=== PATIENT | male | born 1950 | race Caucasian/White ===

== ENCOUNTER 2017-12-08 22:09 | Observation (INO) | payer OTHER ==
[~2017-12-08] VITALS: Ht 175.3 cm; Wt 101.3 kg
[~2017-12-08 22:09] MED LIST: ATENOLOL50 MG PO; LIPITOR20 MG PO; OMEPRAZOLE40 M1 PO; TAMSULOSIN HCL0.4 MG PO; TRIBENZOR 40-51 EAC5 PO; VENTOLIN HFA18 GM IH
[2017-12-08 22:35] LABS: HEMATOCRIT 40.5 % (38.0-50.0); HEMOGLOBIN 13.8 G/DL (12.5-16.6); MCH 30.7 PG (29.0-34.0); MCHC 34.1 G/DL (30.0-36.0); PLATELET COUNT 218 K/uL (156-360); RBC DIS.WIDTH-CV 12.2 % (11.8-14.6); RBC DIS.WIDTH-SD 39.7 % (39-53); WHITE BLOOD COUNT 8.4 K/uL (4.1-10.2)
[2017-12-08 22:51] LABS: CHLORIDE 104 mEq/L (99-109); POTASSIUM 3.9 mEq/L (3.7-5.4); SODIUM 141 mEq/L (136-147)
[2017-12-08 22:53] LABS: GLUCOSE 154 mg/dL (70-99)
[2017-12-08 22:56] LABS: CREATININE 1.1 mg/dL (0.6-1.3); GFR ESTIMATE (CALCULATED) > 59 mL/min/ (58.99-99999); TROP-I INTERPRETATION NEGATIVE; TROPONIN-I < 0.01 ng/mL (0.0-0.30)
[2017-12-08 22:57] LABS: UREA NITROGEN (BUN) 18 mg/dL (9-23)
[2017-12-08] MEDS ORDERED: NITROGLYCERIN0.4 MG SL (23:24)
[2017-12-08] MEDS ORDERED: PROAIR HFA8.5 GM IH (23:24)
[2017-12-08] MEDS ORDERED: MEN 50 PLUS MU1 EACH PO (23:24)
[2017-12-08] MEDS ORDERED: TOPROL XL100 MG PO (23:25)
[2017-12-08] MEDS ORDERED: DURLAZA162.5 MG PO (23:25)
[2017-12-09 02:14] LABS: ALBUMIN 4.5 g/dL (3.2-4.8)
[2017-12-09 02:19] LABS: TOTAL BILIRUBIN 0.7 mg/dL (0.0-1.0)
[2017-12-09 02:20] LABS: ALKALINE PHOSPHATASE 120 IU/L (3-129)
[2017-12-09 02:22] LABS: AST (GOT) 29 IU/L (2-34); DIRECT BILIRUBIN 0.3 mg/dL (0.0-0.3)
[2017-12-09 02:23] LABS: ALT (GPT) 30 IU/L (3-49)
[2017-12-09 02:24] LABS: LIPASE 50 U/L (1.0-51.0)
[2017-12-09 03:04] VITALS: BP 133/75
[2017-12-09 06:06] LABS: TROP-I INTERPRETATION NEGATIVE; TROPONIN-I < 0.01 ng/mL (0.0-0.30)
[2017-12-09 11:24] LABS: TROP-I INTERPRETATION NEGATIVE; TROPONIN-I < 0.01 ng/mL (0.0-0.30)
[2017-12-09 11:30] VITALS: BP 109/64
== END 2017-12-09 12:15 | disposition home or self-care (01) ==
LOC: EME 22:09 → EDOF 12-09 01:48 → ENRESERV 12-09 01:50 → 4SOUTH 12-09 02:58
PROVIDERS: Hospitalist
DX: R07.9 Chest pain, unspecified (principal); I25.10 Atherosclerotic heart disease of native coronary artery without angina pectoris; Z95.5 Presence of coronary angioplasty implant and graft; I10 Essential (primary) hypertension; E78.5 Hyperlipidemia, unspecified; Z87.891 Personal history of nicotine dependence; Z90.79 Acquired absence of other genital organ(s); M19.90 Unspecified osteoarthritis, unspecified site; Z85.46 Personal history of malignant neoplasm of prostate; Z82.49 Family history of ischemic heart disease and other diseases of the circulatory system; Z80.8 Family history of malignant neoplasm of other organs or systems; Z82.3 Family history of stroke; Z80.0 Family history of malignant neoplasm of digestive organs; Z82.0 Family history of epilepsy and other diseases of the nervous system; Z88.8 Allergy status to other drugs, medicaments and biological substances
CPT/HCPCS: 71046; 80048; 80076; 83690; 84484; 85027; 93005; 99202; 99281; 99285; G0378